=== PATIENT | male | born 1955 | race Hispanic/Latino ===

== ENCOUNTER 2016-07-20 19:26 | Emergency (ER) | payer SELFPAY ==
[2016-07-20 19:33] VITALS: BP 141/88; PULSE 74; RESP 16; O2SAT 95
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
[2016-07-20 20:44] LABS: BASOPHILS % (AUTO) 1.8 % (0-3); EOSINOPHILS % (AUTO) 3.2 % (0-5); MONOCYTES % (AUTO) 8.5 % (4-12); Mean Corpuscular Hemoglobin 29.8 pg (27.0-35.0); Mean Corpuscular Volume 87.2 fL (81-100); NEUTROPHILS % (AUTO) 48.2 % (40-74); Platelet Count 102 bil/L (150-400)
[2016-07-20 21:44] VITALS: BP 136/87; PULSE 82; RESP 16; O2SAT 97
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
== END 2016-07-21 06:13 | disposition home or self-care (01) ==
LOC: SED 19:26
DX: F10.129 Alcohol abuse with intoxication, unspecified (principal); V89.2XXA Person injured in unspecified motor-vehicle accident, traffic, initial encounter; Y93.89 Activity, other specified; Y92.410 Unspecified street and highway as the place of occurrence of the external cause; Y99.8 Other external cause status
CPT/HCPCS: 36415; 70450; 72125; 80053; 85025; 99284; G0480